=== PATIENT | female | born 1955 | race Caucasian/White ===

== ENCOUNTER 2018-02-17 14:30 | Inpatient (IN) | payer OTHER ==
[~2018-02-17] VITALS: Ht 160 cm; Wt 104.3 kg
[~2018-02-17 14:30] MED LIST: IBRERSARTAN PO; INDERAL LA120 MG PO; NABUMETONE500 MG PO; PERCOCET 5/3251 TAB PO; SYNTHROID150 MCG PO
[2018-02-23] MEDS ORDERED: INDERAL LA120 MG PO (10:43)
[2018-02-23] MEDS ORDERED: IRBESARTAN150 MG PO (10:43)
== END 2018-02-24 17:03 | DRG 470 ==
LOC: SURG 02-22 08:41 → O/R 02-22 08:41 → SURH 02-22 10:15 → SURG 02-22 16:14
PROVIDERS: Orthopaedic Surgery
PROC: 0SRC0J9 Replacement of Right Knee Joint with Synthetic Substitute, Cemented, Open Approach (ICD-10-PCS; principal; 2018-02-22 10:15)
DX: M17.11 Unilateral primary osteoarthritis, right knee (principal); D62 Acute posthemorrhagic anemia; M85.461 Solitary bone cyst, right tibia and fibula; I10 Essential (primary) hypertension; E03.8 Other specified hypothyroidism

== ENCOUNTER 2019-01-02 08:30 | Inpatient (IN) | payer OTHER ==
[~2019-01-02] VITALS: Ht 160 cm; Wt 10.4 kg
[~2019-01-02 08:30] MED LIST changes: +IRBESARTAN150 MG PO
[2019-01-04] MEDS ORDERED: LOSARTAN-HCTZ1 EAC1 PO (09:54)
== END 2019-01-12 20:36 | DRG 470 ==
LOC: SURH 01-10 07:00 → O/R 01-10 07:06 → SURH 01-10 07:06
PROVIDERS: ADMIT Orthopaedic Surgery
PROC: 3E0F7GC Introduction of Other Therapeutic Substance into Respiratory Tract, Via Natural or Artificial Opening (ICD-10-PCS; 2019-01-10)
PROC: 0SRD0J9 Replacement of Left Knee Joint with Synthetic Substitute, Cemented, Open Approach (ICD-10-PCS; principal; 2019-01-10 10:00)
DX: M17.12 Unilateral primary osteoarthritis, left knee (principal); D62 Acute posthemorrhagic anemia; I10 Essential (primary) hypertension; E03.8 Other specified hypothyroidism; J45.909 Unspecified asthma, uncomplicated